=== PATIENT | female | born 1955 | race Caucasian/White ===

== ENCOUNTER 2018-12-25 11:19 | Emergency (ER) | payer MEDICARE, BC ==
--- NOTE | 2018-12-25 12:52 | RAD ---
LEFT KNEE FOUR VIEWS: HISTORY: Left knee injury. FINDINGS: Joint spaces are preserved. No acute fracture, dislocation, or fluid distention of the suprapatellar bursa. IMPRESSION: No acute osseous abnormalities are demonstrated. POS: [facility]
== END 2018-12-25 13:15 | disposition home or self-care (01) ==
LOC: MADERS 11:19
DX: S83.92XA Sprain of unspecified site of left knee, initial encounter (principal); I25.10 Atherosclerotic heart disease of native coronary artery without angina pectoris; K21.9 Gastro-esophageal reflux disease without esophagitis; I10 Essential (primary) hypertension; F41.9 Anxiety disorder, unspecified; X58.XXXA Exposure to other specified factors, initial encounter

== ENCOUNTER 2021-06-03 16:56 | Outpatient (CLI) | payer MEDICARE, BC | END 2021-06-03 16:57 | disposition home or self-care (01) | LOC: MADRAD 16:56 | PROVIDERS: ATTEND Internal Medicine Hematology & Oncology | DX: M25.522 Pain in left elbow (principal) ==

== ENCOUNTER 2024-04-12 12:31 | Outpatient (CLI) | payer BC, MEDICARE | END 2024-04-12 12:32 | disposition home or self-care (01) | LOC: MADRAD 12:31 | DX: M25.522 Pain in left elbow (principal); M19.122 Post-traumatic osteoarthritis, left elbow ==

== ENCOUNTER 2024-06-25 17:28 | Emergency (ER) | payer BC, MEDICARE | END 2024-06-25 17:43 | disposition left against medical advice (07) | LOC: MADERS 17:28 | DX: I95.9 Hypotension, unspecified (principal); I10 Essential (primary) hypertension | CPT/HCPCS: 99284 ==

== ENCOUNTER 2025-08-14 16:07 | Emergency (ER) | payer MEDICARE ==
[2025-08-14 16:38] LABS: #Basophils 0.1 thou/uL (0.0-0.2); #Eosinophils 0.2 thou/uL (0.0-0.7); #Lymphocytes 2.8 thou/uL (1.20-3.40); #Monocytes 0.6 thou/uL (0.11-0.59); #Neutrophils 5.1 thou/uL (1.40-6.50); %Basophils 0.7 % (0.0-1.0); %Eosinophils 2.1 % (0.0-10.0); %Lymphocytes 32.0 % (21.0-51.0); %Monocytes 6.9 % (0.0-10.0); %Neutrophils 58.3 % (42.0-75.0); Hematocrit 34.8 % (36.0-47.0); Hemoglobin 11.5 g/dL (12.0-16.0); Mean Corpuscular Hemoglobin 29.9 pg (27.0-31.0); Mean Corpuscular Volume 90.3 fl (78.0-98.0); Platelet Count 292 10x3/uL (130-400); Red Blood Cell (RBC) Count 3.85 mill/uL (4.20-5.40); White Blood Cell (WBC) Count 8.7 10x3/uL (4.8-10.8)
[2025-08-14 16:55] LABS: Chloride 109 mmol/L (98-107); Potassium 3.5 mmol/L (3.5-5.1); Sodium 140 mmol/L (136-145)
[2025-08-14 16:56] LABS: Calcium 8.6 mg/dL (7.8-10.44)
[2025-08-14 17:11] LABS: Carbon Dioxide 19 mmol/L (23-31)
[2025-08-14 17:12] LABS: Albumin 3.5 g/dL (3.1-4.5); Alkaline Phosphatase 68 U/L (40-110); Anion Gap 16 mmol/L (10-20); Bilirubin, Total 0.4 mg/dL (0.3-1.2); Glucose 108 mg/dL (80-115)
[2025-08-14 17:13] LABS: BUN (Urea Nitrogen) 13 mg/dL (9.8-20.1)
[2025-08-14 17:14] LABS: ALT (SGPT) 8 U/L (Less than 34); AST (SGOT) 28 U/L (11-34)
== END 2025-08-14 17:30 | disposition home or self-care (01) ==
LOC: MADERS 16:07
DX: D49.6 Neoplasm of unspecified behavior of brain (principal); I25.10 Atherosclerotic heart disease of native coronary artery without angina pectoris; I10 Essential (primary) hypertension
CPT/HCPCS: 80053; 85025; 99284